=== PATIENT | male | born 1960 | race Caucasian/White ===

== ENCOUNTER → 2020-03-08 11:58 | Outpatient (CLI) | payer OTHER, SELFPAY ==
[2020-03-10 17:51] LABS: Covid-19 Nasal PCR Sendout Lex NOT DETECTED
--- NOTE | 2020-03-10 18:19 | PC.NURSE ---
Notified pt and Dr Dorman of negative COVID results. Results faxed to [facility].
== END ==
PROVIDERS: Visit Provider Internal Medicine Adolescent Medicine
DX: Z03.818 Encounter for observation for suspected exposure to other biological agents ruled out (principal)

== ENCOUNTER → 2020-03-31 13:48 | Outpatient (CLI) | payer BC, SELFPAY ==
--- NOTE | 2020-03-31 14:53 | XR_ITS ---
PROCEDURE: XR CHEST 2V CLINICAL HISTORY: SOB Increased shortness of air, positive for Coban 19 COMPARISON: No exams were available for comparison FINDINGS: The cardiomediastinal silhouette and pulmonary vascularity are within normal limits. There are no previous exams available for comparison. There is some hyperinflation with hyperlucency of the upper lobes which may be seen with COPD. Patchy density is present in the right mid upper lung zone laterally and could be due to an area of infiltrate or scarring. No acute bony abnormalities. IMPRESSION: COPD with infiltrate or fibrotic change in the right mid upper lung zone laterally Dictated by: Bi Garcia MD 03/31/2020 15:32 Electronically signed by Bi Garcia MD in [place] 03/31/2020 15:32
== END ==
PROVIDERS: PCP Nurse Practitioner; Visit Provider Nurse Practitioner
DX: R06.02 Shortness of breath (principal)
CPT/HCPCS: 71046; 94060

== ENCOUNTER 2024-01-21 14:37 | Outpatient (CLI) | payer BC, SELFPAY | END 2024-01-21 23:59 | PROVIDERS: PCP Nurse Practitioner; Visit Provider Internal Medicine | DX: I10 Essential (primary) hypertension (principal); R42 Dizziness and giddiness; R55 Syncope and collapse; R60.9 Edema, unspecified | CPT/HCPCS: 93270 ==

== ENCOUNTER 2024-02-04 08:40 | Outpatient (CLI) | payer BC, SELFPAY ==
--- NOTE | 2024-02-04 08:41 | CA_ITS ---
APPROVED REPORT EXAM: Comprehensive 2D, Doppler, and color-flow Echocardiogram Performance Instructor: Emma Robertson RT(R) Ht: 5 ft 9 in Wt: 194lbs BSA: 2.04 BP: 155/85 mmHg Indications: HTN, fatigue, ex smoker 2D Dimensions LA Volume 13.20 mL LA Volume Index 6.47 mL/m2 (M/F) 16-34 EF AP4 69.50 % GL Strain -10.9 % M-Mode Dimensions RVDd 2.09 cm (0.9-2.6) LA Diam 3.27 cm (1.9-4.0) LVDd 4.69 cm (3.5-5.7) LVDs 3.17 cm (3.5-5.7) IVSd 1.28 cm (0.6-1.1) PWd 1.12 cm (0.6-1.1) EF (Teich) 60.70% FS 32.40% EDV (Teich) 101.90 mL ESV (Teich) 40.00 mL LV Diastology E Decel Time 230 (160-240 msec) E/A Ratio 0.8 Mitral Valve MV E Max Kalin. 55.0 (40-130 cm/s) MV A Velocity 67.0 (40-130 cm/s) E/A Ratio 0.82 MV PHT 67.0 ms Left Ventricle The left ventricle is normal size. The left ventricular systolic function is normal. The left ventricular ejection fraction is within the normal range. There is normal left ventricular wall thickness. There is increased LV wall thickness. There is normal LV segmental wall motion. The left ventricular diastolic function is normal. LVEF is 55%. Right Ventricle The right ventricle is normal size. The right ventricular systolic function is normal. Atria The left atrium size is normal. The right atrium size is normal. There is no Doppler evidence of interatrial shunt. Aortic Valve The aortic valve opens well. She There is no aortic valvular stenosis. Mild aortic regurgitation. Mitral Valve The mitral valve is normal in structure. No evidence of mitral valve stenosis. Trace mitral regurgitation. Tricuspid Valve The tricuspid valve leaflets are thin and pliable. Trace tricuspid regurgitation. There is insufficient TR jet to estimate RVSP. Pulmonic Valve The pulmonary valve is normal in structure. Trace pulmonic regurgitation. Great Vessels The aortic root is normal in size. The ascending aorta is not well-visualized. IVC is normal in size and collapses >50% with inspiration. Pericardium Trivial pericardial effusion. No echo indications of tamponade. Other Information Study Quality: Fair Conclusion Normal biventricular systolic function. Mild AI. Trivial pericardial effusion. Electronically signed by : Rosalinda Hernandez MD 02/07/2024 00:31:15
--- NOTE | 2024-02-04 08:41 | CA_ITS ---
FINAL REPORT TECHNIQUE: Grayscale, color Doppler and duplex Doppler ultrasound of the kidneys, aorta and renal arteries was performed. Multiple velocities were measured. CLINICAL HISTORY: HTN COMPARISON: None FINDINGS: Aorta velocity: 89 cm/sec Right kidney: 11.5 cm. No evidence of hydronephrosis or mass. Right intrarenal RI: 0.59-0.71 Right renal artery velocity: 176 cm/sec. Right RAR (Renal artery-Aortic Ratio): 1.98 Left Kidney: 10.8 cm. No evidence of hydronephrosis or mass. Left intrarenal RI: 0.64-0.67 Left renal artery velocity: 143 cm/sec. Left RAR (Renal Artery-Aortic Ratio): 1.60 IMPRESSION: No evidence of significant renal artery stenosis. CT angiogram or postcontrast MR angiogram would be more sensitive for evaluation of possible renal artery stenosis. Reviewed, Interpreted and Dictated by Bhavin Laguerre III, MD Transcribed by Feli Monsivais Authenticated and [facility]
--- NOTE | 2024-02-04 09:34 | US_ITS ---
FINAL REPORT TECHNIQUE: Ultrasound images of the kidneys and bladder were obtained. CLINICAL HISTORY: R55 - Syncope and collapse FINDINGS: The right kidney measures 10.7 cm in length with renal cortical thinning. There is no hydronephrosis. The left kidney measures 10.6 in length with mild cortical thinning. There is a probable small renal stone. There is no hydronephrosis. The spleen is unremarkable. IMPRESSION: Bilateral renal cortical thinning. Probable left renal stone. Reviewed, Interpreted and Dictated by Bhavin Laguerre III, MD Transcribed by Angeli Sandoval Authenticated and [facility]
== END 2024-02-04 23:59 ==
LOC: RT 08:41
PROVIDERS: PCP Nurse Practitioner; Visit Provider Internal Medicine
DX: R55 Syncope and collapse (principal); R42 Dizziness and giddiness; I10 Essential (primary) hypertension
CPT/HCPCS: 76770; 93306; 93976

== ENCOUNTER 2024-03-01 06:33 | Outpatient (CLI) | payer BC, SELFPAY ==
--- NOTE | 2024-03-01 | CA_ITS ---
APPROVED REPORT Exam: Pharmacologic Technologist: Tonya Becerril, Ht: 5 ft 9 in Wt: 196 lbs BSA: 2.05 m2 HR: 43 bpm BP: 192/84 mmHg Rhythm: NSR Medical History Cardiac Risk Factors: Smoking Stress Test Details Test: LEXISCAN HR Resting HR: 45 bpm Max Heart Rate (APMHR): 156 bpm Max HR Achieved: 78 bpm Target HR (85% APMHR): 133 bpm % of APMHR: 50 Recovery HR: 49 bpm BP Resting BP: 192/84 mmHg Max BP: 192/84 mmHg Recovery BP: 178.0/90.0 mmHg ECG Resting ECG: Normal sinus rhythm, nonspecific T wave changes Stress ECG: No significant ST changes Arrhythmia: Occasional PACs, PVCs Clinical Exercise duration: 03:59 min Highest Stage Achieved: Exercise capacity: 1.0 METs Stress ECG Conclusion During lexiscan pt experinced SOA and chest tightness. Ectopy: Occasional PACs, PVCs ST changes: None Conclusion: Unremarkable Lexiscan stress test. Myoview images are reported separately. Patient's BP was elevated at baseline. BP control is recommended. Test Summary REST . . . . . . . Sitting REST 10:44 . . 45 . 192/ 84 . . Stage 1 01:00 . . 67 . . . . Stage 2 01:00 . . 71 . 169/ 94 . . Stage 3 01:00 . . 54 . 166/ 94 . . Stage 4 00:59 . . 53 . 172/ 87 . Stop exercise at 03:59 RECOVERY 01:00 . . 49 . . . . RECOVERY 01:32 . . 50 . 178/ 90 . . Electronically signed by : Rosalinda Hernandez MD 03/02/2024 11:33:35
--- NOTE | 2024-03-01 06:43 | NM_ITS ---
APPROVED REPORT Exam: Nuclear Stress Test Indication: HTN, HYPERLIPIDEMIA, FM HX, SOB Patient Location: Outpatient Stress Tech: Tonya Becerril NM Tech:Rachael Cortes, ARRT, RT (R)(N) Ht: 5 ft 8 in Wt: 190 lbs HR: 45 bpm BP: 192/84 mmHg BSA: 2.00 m2 TID: 1.12 BMI: 28.8 History: HTN, HYPERLIPIDEMIA, FM HX, SOB Procedure: Patient received 0.4 mg of intravenous Lexiscan, resting heart rate 45 bpm, resting blood pressure 192/84 mmHg, with Lexiscan maximum heart rate achieved was 78 bpm which is % of the maximum predicted heart rate and blood pressure was 192/84 mmHg. With Lexiscan, patient denied any complaint of chest pain. Cardiac Stress and Resting SPECT Images: Cardiac Stress and Resting SPECT images were obtained using technetium 99m Myoview 30.1 mCi stress and 10.22 mCi at rest. Resting and stress imaging in supine and prone positions demonstrate a medium sized, moderate, fixed perfusion defect in the basal inferior LV wall. This is no longer visualized with prone stress imaging. Findings are suggestive of diaphragmatic attenuation. Gated imaging demonstrates normal global and regional LV systolic function. LVEF is calculated at 53%. Conclusion: Diaphragmatic attenuation is present. No definite evidence of fixed or reversible perfusion defects. Gated imaging demonstrates normal global and regional LV systolic function. LVEF is calculated at 53%. Electronically signed by : Rosalinda Hernandez MD 03/03/2024 13:04:37
[2024-03-01] MEDS: REGADENOSON 0.4MG/5ML SYRINGE 0.400000000000000022 MG IV (08:57)
[2024-03-01] MEDS: ISOTOPE MYOVIEW (PER STUDY) 1 DOSE IV (08:57)
[2024-03-01] MEDS: SODIUM CHLORIDE 0.9% 10ML SYR (RAD ONLY) 10 ML IV ×2 (08:57)
== END 2024-03-01 23:59 ==
PROVIDERS: PCP Nurse Practitioner; Visit Provider Internal Medicine
DX: R55 Syncope and collapse (principal); R42 Dizziness and giddiness; I10 Essential (primary) hypertension
CPT/HCPCS: 78452; 93017; 93018; A9502; J2785

== ENCOUNTER 2024-03-26 11:09 | Outpatient (CLI) | payer BC, SELFPAY ==
--- NOTE | 2024-03-26 11:10 | US_ITS ---
FINAL REPORT CLINICAL HISTORY: claudication, previous smoker, right claudication, right rest pain, HTN. COMPARISON: None FINDINGS: ANKLE-BRACHIAL PRESSURE INDICES Pressure indices are as follows: RIGHT LOWER EXTREMITY: Ankle-brachial pressure index: 1.29 Comments: Normal LEFT LOWER EXTREMITY: Ankle-brachial pressure index: 1.2 Comments: Normal CONCLUSION: No evidence of significant obstructive peripheral vascular disease of the lower extremities Reviewed, Interpreted and Dictated by Onofre Tyson MD Transcribed by Yessenia Anders Authenticated and [facility]
== END 2024-03-26 23:59 | disposition home or self-care (01) ==
LOC: RT 11:10
PROVIDERS: PCP Nurse Practitioner; Visit Provider Nurse Practitioner Family
DX: I73.9 Peripheral vascular disease, unspecified (principal)
CPT/HCPCS: 93923